=== PATIENT | male | born 1950 | race Caucasian/White ===

== ENCOUNTER → 2022-08-04 10:11 | Outpatient (CLI) | payer MEDICARE, OTHER, SELFPAY ==
--- NOTE | 2022-08-04 10:19 | DI.RAD.S_ITS ---
PROCEDURE: XR THORACIC SPINE 3V INDICATIONS: thoracic back pain TECHNIQUE: Three views of the thoracic spine were acquired. COMPARISON: [facility], CT, CT ANGIO CHEST PE, 03/19/2021, 17:27. FINDINGS: Bones: No acute fractures or dislocations. Moderate chronic compression fracture at T12 does not appear significantly changed when compared to the CT from 03/19/2021. No suspicious bony lesions. 12 pairs of ribs are noted, and appear intact where visualized. Mild degenerative endplate changes. Soft tissues: No paravertebral stripe thickening. Surgical clips are seen projecting over the upper abdomen. IMPRESSION: Chronic T12 compression fracture. No acute osseous abnormality. If the symptoms persist, consider cross sectional imaging such as MRI or CT for further assessment. Approved by: Kareem Westfall M.D. on 08/04/2022 at 16:12
--- NOTE | 2022-08-04 10:19 | DI.RAD.S_ITS ---
PROCEDURE: XR LUMBAR SPINE MIN 4V INDICATIONS: low back pain TECHNIQUE: 5 views of the lumbar spine were acquired, including bilateral oblique views. COMPARISON: [facility], MR, MR LUMBAR SPINE WITHOUT CONTRAST, 10/31/2020, 16:16. FINDINGS: Bones: 5 nonrib-bearing vertebrae are present. Generalized osteopenia. There is normal bony alignment. No vertebral body compression fractures. No suspicious bony lesions. Mild degenerative endplate changes. Mild to moderate multilevel facet hypertrophy. Soft tissues: Overlying bowel gas pattern is normal. No suspicious soft tissue calcifications. Surgical clips are seen projecting over the upper abdomen. Surgical suture material is also seen projecting over the pelvis. Oblique images: No pars defects. IMPRESSION: [id number] spondylosis. No acute osseous abnormality. If the symptoms persist, consider cross sectional imaging such as MRI or CT for further assessment. Approved by: Kareem Westfall M.D. on 08/04/2022 at 16:15
== END ==
PROVIDERS: Referring Provider Anesthesiology; Visit Provider Anesthesiology
DX: M47.816 Spondylosis without myelopathy or radiculopathy, lumbar region (principal); M48.54XS Collapsed vertebra, not elsewhere classified, thoracic region, sequela of fracture; M54.6 Pain in thoracic spine; M54.50 Low back pain, unspecified
CPT/HCPCS: 72072; 72110; 99214

== ENCOUNTER 2022-08-28 14:59 | Outpatient (CLI) | payer MEDICARE, OTHER, SELFPAY ==
[2022-08-28] VITALS (7 sets, daily range): BP systolic 96–110; BP diastolic 52–70; PULSE 65–78; RESP 16–20; TEMP 36.4; O2SAT 97–100
--- NOTE | 2022-08-28 15:02 | DI.RAD.S_ITS ---
PROCEDURE: PAIN C/T FACET INJ/BLK 1ST OSIRIS COMPARISON: None. INDICATIONS: SPINAL STENOSIS FINDINGS: Low resolution intraoperative 4 fluoroscopic spot films were obtained at thoracolumbar junction and show needle positioning at 2:11 a.m., T12 and L1 IMPRESSION: Fluoroscopic guidance Approved by: Trell Calderon M.D. on 08/29/2022 at 14:46
[2022-08-28] MEDS: IOPAMIDOL 15 ML VIAL 3 ML INJ (16:00)
[2022-08-28] MEDS: BUPIVACAINE 0.5% (PF) 10 ML VIAL 5 ML SUBCUT (16:00)
--- NOTE | 2022-08-28 17:28 | P.PCN_ITS ---
Date/Time/Diagnoses Date of procedure: 08/28/22 Time of procedure: 15:30 Procedure Notes Physician: Dung Patel Total Fluoroscopy time (seconds): 38 Total sedation minutes: 0 Procedure in detail & Post-procedure care: Bilateral T11, T12, L1 Medial Branch Blocks Indications: Chase is referred by Dr. Santamaria for treatment of thoracolumbar spondylosis with thoracic back pain. Preoperative diagnosis: Bilateral thoracolumbar spondylosis Postoperative diagnosis: Same Pre-procedure History: Patient demonstrates today moderate to severe non- radicular back pain without neurologic deficit aggravated by hyperextension yes Back pain greater than leg pain? yes Patient today has tenderness over the suspected joint(s) yes History of post-traumatic injury? yes Hypertrophic arthropathy yes Back pain associated with suspected motion segment instability, hypermobility or pseudoarthrosis yes Pre-testing pain score (VAS): 8/10 Focused Examination: Ax3 Mood and affect are normal Vital Signs: VSS ASA: 2 Consent: Following review of allergies and potential side effects/complications, including, but not necessarily limited to, infection, allergic reaction, local tissue breakdown, stroke, temporary or permanent nerve injury, paralysis, and possible , the patient indicated that they understood and agreed to proceed.? An informed consent document was signed by the patient, witnessed by a nurse and placed in the patient's chart.? Additionally, other treatment options including medications and physical therapy were reviewed with the patient. All questions were answered. Site was then marked. Anesthesia: Local Position: Prone Monitoring: NIBP, Pulse oximetry, 3 lead EKG Needle used: 25G 3.5 inch spinal needle Contrast: Isovue 300M Injectate: 0.5% bupivacaine 0.5 mL per site Procedure: The patient was brought into the procedure room and positioned into the prone position. Skin was prepped with a Chloraprep solution, allowed to air dry, and then draped in sterile fashion.? The right T11, 12, L1 facet joints were visually identified with fluoroscopy. Lidocaine 1% was used to anesthetize the skin over each target destination with a 25ga needle. A 22 ga, 3.5 inch spinal needle was advanced to the location of the medial branch at the junction of the superior articular process and the transverse process using intermittent fluoroscopy in the AP view. Isovue 300M contrast 0.2ml was injected at each level outlining the medial borders for each level in the AP and lateral views. There was no evidence of vascular or intrathecal uptake. The above injectate was slowly injected at each target destination. The above procedure was then repeated for the left side. The left T11, 12, L1 facet joints were visually identified with fluoroscopy. Lidocaine 1% was used to anesthetize the skin over each target destination with a 25ga needle. A 22 ga, 3.5 inch spinal needle was advanced to the location of the medial branch at the junction of the superior articular process and the transverse process using intermittent fluoroscopy in the AP view. Isovue 300M contrast 0.2ml was injected at each level outlining the medial borders for each level in the AP and lateral views. There was no evidence of vascular or intrathecal uptake. The above injectate was slowly injected at each target destination. At the end of the procedure the needles were withdrawn and Band-Aids were applied for a dressing. Post Procedure: Patient was taken to the recovery and monitored. The patient was provided a Pain Log to continue to record the patient's response to the target- specific procedure prior to the patient's follow-up visit with the referring physician. Patient was stable upon discharge. Detailed post procedure instructions were provided. Patient was asked to call in the event of worsening pain, fever, weakness, numbness or bladder or bowel incontinence. Postoperatively, today patient demonstrates the following changes with hyperextension and with tenderness over the suspected joint(s). Provacative testing using the Parson's facet loading test Right side Left side Directly before the block ?VAS (0-10) = 8/10 VAS (0-10) = 8/10 5 minutes after the block VAS (0-10) = 4/10 VAS (0-10) = 4/10 Percentage relief obtained with this diagnostic block 50 % 50 % Any improved physical functioning directly after the blocks? Improved mobility Based on the medial branches blocked today, if the patient meets insurance criteria for radiofrequency, the treatment should result in the denervation of the bilateral T12-L1 and L1-L2 facet joint nerves. We would expect to denervate a total of 4 facets during the radiofrequency ablation.
== END 2022-08-28 16:21 | disposition home or self-care (01) ==
PROVIDERS: PCP Family Medicine; Referring Provider Anesthesiology; Visit Provider Anesthesiology
DX: M47.814 Spondylosis without myelopathy or radiculopathy, thoracic region (principal); M47.815 Spondylosis without myelopathy or radiculopathy, thoracolumbar region
CPT/HCPCS: 64490; 64491

== ENCOUNTER 2022-09-18 14:54 | Outpatient (CLI) | payer MEDICARE, OTHER, SELFPAY ==
--- NOTE | 2022-09-18 14:56 | DI.RAD.S_ITS ---
PROCEDURE: PAIN L/S FACET INJ/BLK 1ST OSIRIS COMPARISON: None. INDICATIONS: Bilateral T11, 12, L1 MBB - SA FINDINGS: A single fluoroscopic C-arm image is provided. 6 separate needles have been placed, leave for bilateral medial branch block procedure. IMPRESSION: Fluoroscopic imaging provided for a bilateral medial branch block Dictated by: Laci Irwin M.D. on 09/18/2022 at 17:38 Approved by: Laci Irwin M.D. on 09/18/2022 at 17:40
[2022-09-18 15:10] VITALS: BP 148/76; PULSE 78; RESP 22; TEMP 36.9; O2SAT 96
[2022-09-18 15:35] VITALS: BP 177/75; PULSE 70; RESP 16; O2SAT 100
[2022-09-18 15:40] VITALS: BP 159/72; PULSE 74; RESP 18; O2SAT 100
[2022-09-18 15:45] VITALS: BP 143/65; PULSE 70; RESP 18; O2SAT 100
[2022-09-18 15:51] VITALS: BP 149/56; PULSE 70; RESP 16; O2SAT 100
[2022-09-18 15:56] VITALS: BP 153/67; PULSE 70; RESP 20; O2SAT 97
--- NOTE | 2022-09-18 17:24 | P.PCN_ITS ---
Date/Time/Diagnoses Date of procedure: 09/18/22 Time of procedure: 15:30 Procedure Notes Physician: Dung Patel Total Fluoroscopy time (seconds): 18 Total sedation minutes: 0 Procedure in detail & Post-procedure care: Bilateral T11, T12 and L1 Lumbar Medial Branch Blocks Indications: Chase is presenting for treatment of lumbar spondylosis with low back pain. Preoperative diagnosis: Bilateral thoracolumbar spondylosis Postoperative diagnosis: Same Pre-procedure History: Patient demonstrates today moderate to severe non- radicular back pain without neurologic deficit aggravated by hyperextension yes Back pain greater than leg pain? yes Patient today has tenderness over the suspected joint(s) yes History of post-traumatic injury? yes Hypertrophic arthropathy yes Back pain associated with suspected motion segment instability, hypermobility or pseudoarthrosis no Pre-testing pain score (VAS): 8/10 Focused Examination: Ax3 Mood and affect are normal Vital Signs: VSS ASA: 2 Consent: Following review of allergies and potential side effects/complications, including, but not necessarily limited to, infection, allergic reaction, local tissue breakdown, stroke, temporary or permanent nerve injury, paralysis, and possible , the patient indicated that they understood and agreed to proceed.? An informed consent document was signed by the patient, witnessed by a nurse and placed in the patient's chart.? Additionally, other treatment options including medications and physical therapy were reviewed with the patient. All questions were answered. Site was then marked. Anesthesia: Local Position: Prone Monitoring: NIBP, Pulse oximetry, 3 lead EKG Needle used: 22G 3.5 inch spinal needle Contrast: Isovue 300M Injectate: 2% Lidocaine 1 mL per site Procedure: The patient was brought into the procedure room and positioned into the prone position. Skin was prepped with a Chloraprep solution, allowed to air dry, and then draped in sterile fashion.? The right T12-L1 and L1-2 facet joints were visually identified with fluoroscopy. Lidocaine 1% was used to anesthetize the skin over each target destination with a 25ga needle. A 22 ga, 3.5 inch spinal needle was advanced to the location of the medial branch at the junction of the superior articular process and the transverse process at T11, 12 and L1 using intermittent fluoroscopy in the AP view. Isovue 300M contrast 0.2ml was injected at each level outlining the medial borders for each level in the AP and lateral views. There was no evidence of vascular or intrathecal uptake. The above injectate was slowly injected at each target destination. The left T12-L1 and L1-2 facet joints were visually identified with fluoroscopy. Lidocaine 1% was used to anesthetize the skin over each target destination with a 25ga needle. A 22 ga, 3.5 inch spinal needle was advanced to the location of the medial branch at the junction of the superior articular process and the transverse process at T11, 12 and L1 using intermittent fluoroscopy in the AP view. Isovue 300M contrast 0.2ml was injected at each level outlining the medial borders for each level in the AP and lateral views. There was no evidence of vascular or intrathecal uptake. The above injectate was slowly injected at each target destination. At the end of the procedure the needles were withdrawn and Band-Aids were applied for a dressing. At the end of the procedure the needles were withdrawn and Band-Aids were applied for a dressing. Post Procedure: Patient was taken to the recovery and monitored. The patient was provided a Pain Log to continue to record the patient's response to the target- specific procedure prior to the patient's follow-up visit with the referring physician. Patient was stable upon discharge. Detailed post procedure ins tructions were provided. Patient was asked to call in the event of worsening pain, fever, weakness, numbness or bladder or bowel incontinence. Postoperatively, today patient demonstrates the following changes with hyperextension and with tenderness over the suspected joint(s). Provacative testing using the Parson's facet loading test Right side Left side Directly before the block ?VAS (0-10) = 8/10 VAS (0-10) = 8/10 5 minutes after the block VAS (0-10) = 1/10 VAS (0-10) = 1/10 Percentage relief obtained with this diagnostic block 87 % 87 % Any improved physical functioning directly after the blocks? Range of motion Based on the medial branches blocked today, if the patient meets insurance criteria for radiofrequency, the treatment should result in the denervation of the bilateral T12-L1 and L1-2 facet joint nerves. We would expect to denervate a total of 4 facets during the radiofrequency ablation.
== END 2022-09-18 16:04 | disposition home or self-care (01) ==
PROVIDERS: PCP Family Medicine; Referring Provider Anesthesiology; Visit Provider Anesthesiology
DX: M47.815 Spondylosis without myelopathy or radiculopathy, thoracolumbar region (principal)
CPT/HCPCS: 64490; 64491; 64492; 64493

== ENCOUNTER 2022-10-14 10:08 | Observation (INO) | payer MEDICARE, OTHER, SELFPAY ==
[2022-10-14] VITALS (90 sets, daily range): BP systolic 80–169; BP diastolic 52–72; PULSE 68–89; RESP 11–31; TEMP 36.8–37.4; O2SAT 92–100; BMI 23.7
--- NOTE | 2022-10-14 10:13 | DI.RAD.S_ITS ---
PROCEDURE: XR CHEST 1V INDICATIONS: weakness, hypotension TECHNIQUE: One view of the chest was acquired. COMPARISON: None. FINDINGS: Surgical changes and devices: None. Lungs and pleura: Lungs are clear. No pleural effusions or pneumothorax. Mediastinum: Mediastinal contours appear normal. Heart size is normal. Bones and chest wall: No suspicious bony lesions. Prior right distal clavicle resection. Overlying soft tissues appear unremarkable. IMPRESSION: No acute cardiopulmonary disease. Dictated by: Suzette Cevallos M.D. on 10/14/2022 at 11:36 Approved by: Suzette Cevallos M.D. on 10/14/2022 at 11:37
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
[2022-10-14 12:38] LABS: Add Manual Diff / Slide Review NO; Basophils Absolute Auto 0 /uL (0-100); Basophils Percent Auto 0.3 % (0-2); Eosinophils Absolute Auto 100 /uL (0-450); Eosinophils Percent Auto 0.4 % (2-4); Hematocrit 47.3 % (41-53); Hemoglobin 15.6 g/dL (13.5-17.5); Lymphocytes Absolute Auto 2100 /uL (1100-4500); Lymphocytes Percent Auto 13.1 % (25-40); Mean Corpuscular HGB Conc 33.1 % (30-36); Mean Corpuscular Hemoglobin 32.4 PG (26-34); Mean Corpuscular Volume 97.9 fL (80-100); Monocytes Absolute Auto 1500 /uL (0-900); Monocytes Percent Auto 9.3 % (3-14); Neutrophils Absolute Auto 12400 /uL (1500-7000); Neutrophils Percent Auto 76.9 % (50-75); Platelet Count 345 X10^3/uL (150-400); Red Blood Cell Count 4.83 X10^6/uL (4.5-5.9); Red Cell Distribution Width 13.8 % (11.6-14.8); White Blood Cell Count 16.1 X10^3/uL (4.5-11.0)
[2022-10-14] MEDS: ONDANSETRON 4 MG/2 ML INJ IV ×3 (12:44→21:20)
[2022-10-14] MEDS: SODIUM CHLORIDE 0.9% 1,000 ML 1000 ML IV (12:45)
[2022-10-14 12:56] LABS: Lactate (Lactic Acid) 1.7 mmol/L (0.7-2.1)
[2022-10-14 13:05] LABS: NT-proBNP (BNP-Adult 18+) 133 pg/mL (<125)
[2022-10-14 13:14] LABS: Procalcitonin 0.09 ng/mL (<0.5)
[2022-10-14 13:37] LABS: BUN Creatinine Ratio 24.6 (6-22); Blood Urea Nitrogen 33 mg/dL (9-20); Calcium 8.3 mg/dL (8.4-10.2); Carbon Dioxide 24 mmol/L (22-32); Chloride 105 mmol/L (98-107); Creatine Kinase 190 U/L (55-170); Estimated Glomerular Filt Rate 56 mL/min (>60); Glucose 99 mg/dL (80-110); Sodium 138 mmol/L (137-145)
[2022-10-14 13:38] LABS: Alanine Aminotransferase 20 IU/L (<50); Albumin 4.3 g/dL (3.5-5.0); Albumin Globulin Ratio 1.4 (1.0-2.8); Alkaline Phosphatase 88 U/L (38-126); Aspartate Aminotransferase 31 IU/L (17-59); Bilirubin Total 0.9 mg/dL (0.2-1.3); Globulin 3.1 g/dL (1.7-4.1); HEMOLYSIS 72 (0-50); Total Protein 7.4 g/dL (6.3-8.2)
[2022-10-14 13:39] LABS: Troponin I < 0.012 ng/mL (0.01-0.034)
[2022-10-14 13:52] LABS: CKMB % Relative Index 0.9 % (1.5-5.0); Creatine Kinase MB 1.69 ng/mL (<2.37)
[2022-10-14 14:03] LABS: Appearance Urine UA CLEAR; Bilirubin Urine UA NEGATIVE (NEGATIVE); Color Urine UA YELLOW; Glucose Urine UA NEGATIVE (Negative); Ketones Urine UA NEGATIVE (NEGATIVE); Leukocyte Esterase Urine UA NEGATIVE (NEGATIVE); Nitrite Urine UA NEGATIVE (Negative); Occult Blood Urine UA NEGATIVE (Negative); Protein Urine UA 1+ (Negative)
[2022-10-14 14:15] LABS: Culture Indicated Urine Cult Not Indicated; Hyaline Casts Urine 1-5/LPF; RBC Urine 1-5/HPF (0-5/HPF); Squamous Epithelial Cell Urine 0-1 /HPF (0-5/HPF); WBC Urine 1-5/HPF (0-5/HPF)
[2022-10-14 14:20] LABS: Bacteria Urine Occasional (0-1)
--- NOTE | 2022-10-14 14:22 | DI.CT.S_ITS ---
PROCEDURE: CT ABDOMEN PELVIS W CON INDICATIONS: abdominal pain TECHNIQUE: After the administration of intravenous contrast, axial sections acquired from the lung bases to the pubic symphysis. Coronal and sagittal reformats were performed. For radiation dose reduction, the following was used: automated exposure control, adjustment of mA and/or kV according to patient size. COMPARISON: None. FINDINGS: Image quality: Excellent. Lung bases: Unremarkable. Heart: Normal size. Severe coronary artery calcifications. ABDOMEN: Liver: Unremarkable. Gallbladder: Unremarkable. Biliary ducts: Unremarkable. Pancreas: Unremarkable. Spleen: Surgically absent. Minimal residual splenic tissue.. Adrenal Glands: Unremarkable. Kidneys and Ureters: Remote left nephrectomy. Right kidney is unremarkable.. Stomach and Bowel: Small-bowel obstruction. Small bowel loops measure up to 5.3 cm. There is a transition point noted in the right abdomen. Colon is decompressed. Mild sigmoid diverticulosis. Peritoneum: No abnormal intraperitoneal fluid. No free air. Ventral Wall: No hernias. Abdominal Nodes: No retroperitoneal or mesenteric adenopathy by size criteria. Vessels: Aorta and inferior vena cava are normal in size. Diffuse atherosclerotic change. Severe or high-grade left common iliac artery stenosis. PELVIS: Pelvic Organs: Unremarkable. Bladder: Unremarkable. Pelvic Nodes: No enlarged lymph nodes. Miscellaneous: No hernias are seen. Bones: Mild chronic T12 compression. No evidence of aggressive bony lesion. No acute compression. IMPRESSION: 1. High-grade small-bowel obstruction with marked dilatation of small bowel loops. 2. Severe coronary artery calcifications. 3. Extensive peripheral vascular calcifications with severe or high-grade calcified left common iliac artery stenosis. 4. Remote splenectomy, and remote left nephrectomy. Dictated by: Laci Irwin M.D. on 10/14/2022 at 15:47 Approved by: Laci Irwin M.D. on 10/14/2022 at 15:54
[2022-10-14] MEDS: HYDROMORPHONE 0.5 MG INJ IV ×3 (14:55→21:26)
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
[2022-10-14] MEDS: SODIUM CHLORIDE 0.9% 1,000 ML 150 ML IV (16:44)
[2022-10-14 16:52] LABS: Magnesium 2.3 mg/dL (1.6-2.3)
--- NOTE | 2022-10-14 17:31 | DI.RAD.S_ITS ---
PROCEDURE: XR GASTROGRAFIN CHALLENGE COMPARISON: [facility], CT, CT ABDOMEN PELVIS W CON, 10/14/2022, 15:05. [facility], CR, XR CHEST 1V, 10/14/2022, 11:17. INDICATIONS: SBO FINDINGS: Gastrografin was given by mouth. Oral contrast has reached to the rectum at 4 hours. There are multiple surgical clips in upper abdomen. IMPRESSION: Oral contrast has reached colon and rectum. Dictated by: Ree Chavez M.D. on 10/14/2022 at 21:59 Approved by: Ree Chavez M.D. on 10/14/2022 at 22:01
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
[2022-10-14 18:23] LABS: COVID19 -Nasal RAPID Negative (Negative)
[2022-10-14] MEDS: SODIUM CHLORIDE 0.9% 1,000 ML 125 ML IV (18:36)
[2022-10-14] MEDS: ATORVASTATIN 20 MG TABLET PO (21:20)
[2022-10-14] MEDS: HEPARIN 5,000 UNIT/ML VIAL 5000 UNIT SUBCUT (21:21)
[2022-10-14] MEDS: TRAZODONE 50 MG TABLET PO (21:21)
[2022-10-15] MEDS: ONDANSETRON 4 MG/2 ML INJ IV ×4 (00:45→12:25)
[2022-10-15 02:24] VITALS: BP 176/79; PULSE 82; RESP 19; TEMP 37; O2SAT 95
[2022-10-15] MEDS: HYDROMORPHONE 0.5 MG INJ IV ×3 (03:14→14:46)
[2022-10-15 06:28] LABS: Add Manual Diff / Slide Review NO; Basophils Absolute Auto 100 /uL (0-100); Basophils Percent Auto 0.4 % (0-2); Eosinophils Absolute Auto 200 /uL (0-450); Eosinophils Percent Auto 1.3 % (2-4); Hematocrit 43.8 % (41-53); Hemoglobin 14.4 g/dL (13.5-17.5); Lymphocytes Absolute Auto 2200 /uL (1100-4500); Lymphocytes Percent Auto 16.3 % (25-40); Mean Corpuscular HGB Conc 32.9 % (30-36); Mean Corpuscular Hemoglobin 31.9 PG (26-34); Mean Corpuscular Volume 96.9 fL (80-100); Monocytes Absolute Auto 1300 /uL (0-900); Monocytes Percent Auto 9.9 % (3-14); Neutrophils Absolute Auto 9600 /uL (1500-7000); Neutrophils Percent Auto 72.1 % (50-75); Platelet Count 308 X10^3/uL (150-400); Red Blood Cell Count 4.52 X10^6/uL (4.5-5.9); Red Cell Distribution Width 13.7 % (11.6-14.8); White Blood Cell Count 13.4 X10^3/uL (4.5-11.0)
[2022-10-15 06:43] LABS: BUN Creatinine Ratio 29.8 (6-22); Blood Urea Nitrogen 28 mg/dL (9-20); Calcium 7.5 mg/dL (8.4-10.2); Carbon Dioxide 20 mmol/L (22-32); Chloride 111 mmol/L (98-107); Estimated Glomerular Filt Rate > 60 mL/min (>60); Glucose 67 mg/dL (80-110); HEMOLYSIS < 15 (0-50); Potassium 4.3 mmol/L (3.4-5.1); Sodium 139 mmol/L (137-145)
--- NOTE | 2022-10-15 08:27 | P.CALLCOV_ITS ---
Call Coverage Note Note Date of Patient Contact: 10/15/22 Time of Patient Contact: 08:27 Narrative of Care Provided: 72-year-old man with a small-bowel obstruction. Gastrografin challenge demonstrates passage of contrast into the colon and rectum. Having bowel mo vements resolution of abdominal pain. Obstruction resolved. Diet as tolerated signing off.
[2022-10-15] MEDS: DULOXETINE 30 MG CAPSULE PO (08:37)
[2022-10-15] MEDS: HEPARIN 5,000 UNIT/ML VIAL 5000 UNIT SUBCUT (08:37)
[2022-10-15 10:00] VITALS: BP 112/81; PULSE 74; RESP 16; TEMP 36.8; O2SAT 94
--- NOTE | 2022-10-15 11:31 | CM.DANOTE ---
DCP: Case received, EMR reviewed and met with patient. Introduced self and role. Was able to obtain information regarding patient's baseline activity status prior to hospitalization. DCP assessment completed with information currently available. Patient is a 72 year old male who admitted yesterday afternoon to the care of the hospitalist team. PCP: Dr. Santamaria. Payer: confirmed: Medicare/[employer] Patient came to the hospital via private vehicle secondary to having generalized abdominal discomfort, and is noted that he had an episode of nausea, and vomiting. Patient had also noted loose stool. Patient was diagnosed with partial small bowel obstruction. No NG tube was needed at this time. Patient has history of COPD, chronic peripheral vascular disease. Met with patient in his room. He was feeling better, was going to start a clear liquid diet. Confirmed that he resides in [place] with spouse, Karen. He is retired, and is independent at his baseline. Confirmed that Dr. Santamaria is his primary care provider. P: DCP to continue to follow. Patient should be able to go home when deemed medically stable, could possibly discharge today. Domonique Carmen RN/Can Carrier Discharge Planning/Care Management Advanced directive, confirm from FAMILY Start: 10/14/22 19:45 Freq: Q24H Status: Active Protocol: Document 10/14/22 19:45 AGW (Rec: 10/15/22 03:19 AGW [id number]) Advance Directive, confirm on record Time 20:00 Person contacted patient Copy received No CM Discharge Assessment Start: 10/15/22 11:29 Freq: Status: Active Protocol: Document 10/15/22 11:29 (Rec: 10/15/22 11:31 [id number]) Discharge Planning Assessment Assigned Golf Cart Attendant Domonique Carmen RN/Can Carrier Advance Directives? Yes Advance Directives on File No History Provided By Patient,Medical Record Prior Living Arrangements House Household Members spouse Type of transporation used prior to Drives own vehicle admit Independent with ADL's Yes Is patient alert and oriented? Yes Barriers to Discharge No Discharge Plan Home Transportation Arrangement Spouse Referrals Initiated None needed Whiteboard Updated in Patient Room with Yes name and ext. # of Golf Cart Attendant Review Status In Process Next Review Type Continued Stay Review
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
== END 2022-10-15 16:00 | disposition home or self-care (01) ==
LOC: ED 16:15 → AC 17:22
PROVIDERS: Admitting Provider Student in an Organized Health Care Education/Training Program; Emergency Provider Emergency Medicine; PCP Family Medicine; Referring Provider Emergency Medicine; Visit Provider Student in an Organized Health Care Education/Training Program
DX: K56.609 Unspecified intestinal obstruction, unspecified as to partial versus complete obstruction (principal); I10 Essential (primary) hypertension; E78.5 Hyperlipidemia, unspecified; J44.9 Chronic obstructive pulmonary disease, unspecified; G47.00 Insomnia, unspecified; I70.8 Atherosclerosis of other arteries; D72.829 Elevated white blood cell count, unspecified; Z20.822 Contact with and (suspected) exposure to COVID-19
CPT/HCPCS: 36415; 71045; 74018; 74177; 80048; 80053; 81001; 82550; 82553; 83605; 83735; 83880; 84145; 84484; 85025; 87040; 87635; 93005; 93010; 96361; 96372; 96374; 96375; 96376; 99284; C9803; G0378; J1170; J1644; J2405; Q9967

== ENCOUNTER → 2022-10-27 10:47 | Outpatient (CLI) | payer MEDICARE, OTHER, SELFPAY ==
[2022-10-14 17:59] VITALS: BMI 23.7
[2022-10-27 12:00] LABS: Add Manual Diff / Slide Review NO; Basophils Absolute Auto 100 /uL (0-100); Basophils Percent Auto 1.2 % (0-2); Eosinophils Absolute Auto 400 /uL (0-450); Eosinophils Percent Auto 3.9 % (2-4); Hematocrit 44.7 % (41-53); Hemoglobin 15.2 g/dL (13.5-17.5); Lymphocytes Absolute Auto 2400 /uL (1100-4500); Mean Corpuscular Hemoglobin 32.8 PG (26-34); Mean Corpuscular Volume 96.5 fL (80-100); Monocytes Absolute Auto 900 /uL (0-900); Monocytes Percent Auto 9.3 % (3-14); Neutrophils Absolute Auto 6300 /uL (1500-7000); Neutrophils Percent Auto 61.6 % (50-75); Platelet Count 403 X10^3/uL (150-400); Red Blood Cell Count 4.63 X10^6/uL (4.5-5.9); Red Cell Distribution Width 13.6 % (11.6-14.8); White Blood Cell Count 10.2 X10^3/uL (4.5-11.0)
== END ==
PROVIDERS: PCP Family Medicine; Referring Provider Anesthesiology; Visit Provider Anesthesiology
DX: K56.600 Partial intestinal obstruction, unspecified as to cause (principal)
CPT/HCPCS: 36415; 85025

== ENCOUNTER 2022-11-05 10:29 | Outpatient (CLI) | payer MEDICARE, OTHER, SELFPAY ==
[2022-10-14 17:59] VITALS: BMI 23.7
[2022-11-05] VITALS (20 sets, daily range): BP systolic 139–179; BP diastolic 54–88; PULSE 66–83; RESP 12–18; TEMP 36.8; O2SAT 96–100
--- NOTE | 2022-11-05 10:30 | DI.RAD.S_ITS ---
PROCEDURE: PAIN C/T MEDIAL N RFA BILAT INDICATIONS: SPONDYLOSIS COMPARISON: [facility], XA, PAIN C/T FACET INJ/BLK 1ST OSIRIS, 09/18/2022, 15:35. FINDINGS: Fluoroscopic spot filming was performed to verify placement of spinal needles on both sides at the T11, T12, and L1 levels, as labeled on the films. IMPRESSION: Images during rhizotomy within normal limits. Dictated by: Rk Rosado M.D. on 11/05/2022 at 13:45 Approved by: Rk Rosado M.D. on 11/05/2022 at 13:46
[2022-11-05] MEDS: BUPIVACAINE 0.5% (PF) 10 ML VIAL INJ (11:19)
[2022-11-05] MEDS: LIDOCAINE 2% INJ MDV 20ML 20 ML INJ (11:19)
[2022-11-05] MEDS: DEXAMETHASONE 10 MG/ML VIAL 20 MG INJ (11:19)
[2022-11-05] MEDS: MIDAZOLAM 2 MG/2 ML VIAL 1 MG IV ×2 (11:22→12:04)
--- NOTE | 2022-11-05 13:43 | P.PCN_ITS ---
Date/Time/Diagnoses Date of procedure: 11/05/22 Time of procedure: 11:00 Procedure Notes Physician: Dung Patel Total Fluoroscopy time (seconds): 54 Total sedation minutes: 69 Procedure in detail & Post-procedure care: Bilateral T11, 12 and L1 Medial Branch Radio Frequency Ablation Indications: Chase presents for treatment of lumbar spondylosis with low back pain. Preoperative diagnosis: Bilateral thoracolumbar spondylosis Postoperative diagnosis: Same Pre-procedure History: Patient demonstrates today moderate to severe non-radicular low back pain without neurologic deficit aggravated by hyperextension yes Back pain greater than leg pain? yes Patient today has tenderness over the suspected joint(s) yes History of post-traumatic injury? no Hypertrophic arthropathy yes Back pain associated with suspected motion segment instability, hypermobility or pseudoarthrosis no Focused Examination: Ax3 Mood and affect are normal Vital Signs: VSS ASA: 3 Consent: Following review of allergies and potential side effects/complications, including, but not necessarily limited to, infection, allergic reaction, local tissue breakdown, stroke, temporary or permanent nerve injury, paralysis, and possible , the patient indicated that they understood and agreed to proceed.? An informed consent document was signed by the patient, witnessed by a nurse and placed in the patient's chart.? Additionally, other treatment options including medications and physical therapy were reviewed with the patient. All questions were answered. Site was then marked. Position: Prone Monitoring: NIBP, Pulse oximetry, 3 lead EKG Needle used: 18 guage, 100 mm, 10 mm active tip Anesthesia: Local with IV sedation. After review of previous anesthetic history and IV conscious sedation, the patient was deemed safe to proceed with today's procedure with IV conscious sedation. IV sedation was accomplished with midazolam 2 mg administered by the RN after order by Dr. Patel. Sedation was titrated to patient comfort during the course of the procedure. Patient remained responsive to all verbal commands. Procedure: The patient was brought into the procedure room and positioned into the prone position. Skin was prepped with a Chloraprep solution, allowed to air dry, and then draped in sterile fashion.? The right T12-L1 and L1-2 facet joints were visually identified with fluoroscopy. Lidocaine 1% was used to anesthetize the skin over each target destination with a 25ga needle. An 18 ga, 100 mm RFA needle with a 10 mm active tip was advanced to the location of the medial branch at the junction of the superior articular process and the transverse process at right T11, T12 and L1 using intermittent fluoroscopy in the oblique view with caudal tilt. AP and lateral radiographs were taken to confirm proper needle placement. No paresthesias were noted. The stylet was removed and the radiofrequency probe was inserted through the cannula. Each level was individually tested.? Motor stimulation up to 2V elicited multifidus twitching in the spine. There was no motor stimulation. After negative aspiration, 1ml of 2% lidocaine was injected at each of the levels and radiofrequency denervation carried out using 80 degrees Celsius for 90 seconds. After ablation, a mixture of 20 mg dexamethasone with 0.5% bupivacaine 5 mL was injected in equal amounts among the sites (1 mL per site). Next, the left T12-L1 and L1-2 facet joints were visually identified with fluoroscopy. Lidocaine 1% was used to anesthetize the skin over each target destination with a 25ga needle. An 18 ga, 100 mm RFA needle with a 10 mm active tip was advanced to the location of the medial branch at the junction of the sup erior articular process and the transverse process at left T11, 12 and L1 using intermittent fluoroscopy in the oblique view with caudal tilt. AP and lateral radiographs were taken to confirm proper needle placement. No paresthesias were noted. The stylet was removed and the radiofrequency probe was inserted through the cannula. Each level was individually tested.? Motor stimulation up to 2V elicited multifidus twitching in the spine. There was no motor stimulation. After negative aspiration, 1ml of 2% lidocaine was injected at each of the levels and radiofrequency denervation carried out using 80 degrees Celsius for 90 seconds. The needles were then rotated 90 degrees and a second ablation was performed at 80 degrees Celsius for 90 seconds. After ablation, a mixture of 20 mg dexamethasone with 0.5% bupivacaine 5 mL was injected in equal amounts among the sites (1 mL per site). At the end of the procedure the needles were withdrawn and Band-Aids were applied for a dressing. This procedure is expected to denervate the bilateral T12-L1 and L1-L2 facet joints. Post Procedure: Patient was taken to the recovery and monitored. The patient was provided a Pain Log to continue to record the patient's response to the target- specific procedure prior to the patient's follow-up visit with the referring physician. Patient was stable upon discharge. Detailed post procedure instructions were provided. Patient was asked to call in the event of worsening pain, fever, weakness, numbness or bladder or bowel incontinence. Complications: None
== END 2022-11-05 12:50 | disposition home or self-care (01) ==
LOC: RAD 10:30
PROVIDERS: PCP Family Medicine; Referring Provider Anesthesiology; Visit Provider Anesthesiology
DX: M47.815 Spondylosis without myelopathy or radiculopathy, thoracolumbar region (principal)
CPT/HCPCS: 64633; 64634; 99152; 99153; J1100; J2250

== ENCOUNTER 2023-02-18 10:05 | Outpatient (CLI) | payer MEDICARE, OTHER, SELFPAY ==
[2022-10-14 17:59] VITALS: BMI 23.7
[2023-02-18] VITALS (9 sets, daily range): BP systolic 119–143; BP diastolic 56–86; PULSE 68–89; RESP 15–22; TEMP 36.6; O2SAT 95–100
--- NOTE | 2023-02-18 10:07 | DI.RAD.S_ITS ---
PROCEDURE: PAIN C/T FACET INJ/BLK 1ST OSIRIS COMPARISON: [facility], , PAIN C/T FACET INJ/BLK 1ST OSIRIS, 09/18/2022, 15:35. INDICATIONS: SPONDYLOSIS FINDINGS: Fluoroscopic spot filming was performed to verify placement of spinal needles on both sides at the T8, T9, and T10 levels, as labeled on the films. Appropriate location of the needle tips was confirmed by injection of iodinated contrast. IMPRESSION: Intraprocedural examination demonstrating appropriate positions of the needles. Dictated by: Rk Rosado M.D. on 02/18/2023 at 13:07 Approved by: Rk Rosado M.D. on 02/18/2023 at 13:08
[2023-02-18] MEDS: MIDAZOLAM 2 MG/2 ML VIAL 1 MG IV (10:43)
[2023-02-18] MEDS: BUPIVACAINE 0.5% (PF) 10 ML VIAL 5 ML INJ (10:48)
[2023-02-18] MEDS: IOPAMIDOL 15 ML VIAL 3 ML INJ (10:48)
--- NOTE | 2023-02-18 12:17 | P.PCN_ITS ---
Date/Time/Diagnoses Date of procedure: 02/18/23 Time of procedure: 10:30 Procedure Notes Physician: Dung Patel Total Fluoroscopy time (seconds): 44 Total sedation minutes: 25 Procedure in detail & Post-procedure care: Bilateral T8, 9, 10 Medial Branch Blocks Indications: Chase is presenting for treatment of thoracic spondylosis with low back pain. Preoperative diagnosis: Thoracic spondylosis Postoperative diagnosis: Same Pre-procedure History: Patient demonstrates today moderate to severe non- radicular back pain without neurologic deficit aggravated by hyperextension yes Patient today has tenderness over the suspected joint(s) yes History of post-traumatic injury? yes Hypertrophic arthropathy yes Back pain associated with suspected motion segment instability, hypermobility or pseudoarthrosis no Pre-testing pain score (VAS): 7/10 Focused Examination: Ax3 Mood and affect are normal Vital Signs: VSS ASA: 2 Consent: Following review of allergies and potential side effects/complications, including, but not necessarily limited to, infection, allergic reaction, local tissue breakdown, stroke, temporary or permanent nerve injury, paralysis, and possible , the patient indicated that they understood and agreed to proceed.? An informed consent document was signed by the patient, witnessed by a nurse and placed in the patient's chart.? Additionally, other treatment options including medications and physical therapy were reviewed with the patient. All questions were answered. Site was then marked. Anesthesia: Local Position: Prone Monitoring: NIBP, Pulse oximetry, 3 lead EKG Needle used: 25 ga 1.5 inch needle Contrast: Isovue 300M Injectate: 0.5% Bupivacaine 1 mL per site Procedure: The patient was brought into the procedure room and positioned into the prone position. Skin was prepped with a Chloraprep solution, allowed to air dry, and then draped in sterile fashion.? The right T9-10 and T10-11 facet joints were visually identified with fluoroscopy. Lidocaine 1% was used to anesthetize the skin over each target destination with a 25ga needle. A 25 ga, 1.5 inch spinal needle was advanced to the location of the medial branch at T9, 10 and 11 using intermittent fluoroscopy in the AP view. Isovue 300M contrast 0.2ml was injected at each level outlining the medial borders for each level in the AP and lateral views. There was no evidence of vascular, intrathecal or pleural uptake. The above injectate was slowly injected at each target destination. The left T9-10 and T10-11 facet joints were visually identified with fluoroscopy. Lidocaine 1% was used to anesthetize the skin over each target destination with a 25ga needle. A 25 ga, 1.5 inch spinal needle was advanced to the location of the medial branch at T9, 10 and 11 using intermittent fluoroscopy in the AP view. Isovue 300M contrast 0.2ml was injected at each level outlining the medial borders for each level in the AP and lateral views. There was no evidence of vascular, intrathecal or pleural uptake. The above injectate was slowly injected at each target destination. At the end of the procedure the needles were withdrawn and Band-Aids were applied for a dressing. At the end of the procedure the needles were withdrawn and Band-Aids were applied for a dressing. Post Procedure: Patient was taken to the recovery and monitored. The patient was provided a Pain Log to continue to record the patient's response to the target- specific procedure prior to the patient's follow-up visit with the referring physician. Patient was stable upon discharge. Detailed post procedure instructions were provided. Patient was asked to call in the event of worsening pain, fever, weakness, numbness or bladder or bowel incontinence. Postoperatively, today patient demonstrates the following changes with hyperextension and with tenderness over the suspected joint(s). Provacative testing using the Parson's facet loading test Right side Left side Directly before the block ?VAS (0-10) = 7/10 VAS (0-10) = 7/10 5 minutes after the block VAS (0-10) = 4/10 VAS (0-10) = 4/10 Percentage relief obtained with this diagnostic block 42% 42% Any improved physical functioning directly after the blocks? Range of motion Based on the medial branches blocked today, if the patient meets insurance criteria for radiofrequency, the treatment should result in the denervation of the bilateral T9-10 and T10-11 facet joint nerves. We would expect to denervate a total of 4 facets during the radiofrequency ablation.
== END 2023-02-18 11:20 | disposition home or self-care (01) ==
PROVIDERS: PCP Family Medicine; Referring Provider Anesthesiology; Visit Provider Anesthesiology
DX: M47.814 Spondylosis without myelopathy or radiculopathy, thoracic region (principal)
CPT/HCPCS: 64490; 64491; 99152; 99153; J2250

== ENCOUNTER 2023-03-18 10:03 | Outpatient (CLI) | payer MEDICARE, OTHER, SELFPAY ==
[2022-10-14 17:59] VITALS: BMI 23.7
[2023-03-18] VITALS (11 sets, daily range): BP systolic 84–133; BP diastolic 50–69; PULSE 65–82; RESP 13–22; TEMP 36.7; O2SAT 94–100
--- NOTE | 2023-03-18 10:04 | DI.RAD.S_ITS ---
PROCEDURE: PAIN C/T FACET INJ/BLK 1ST OSIRIS INDICATIONS: SPINAL STENOSIS COMPARISON: [facility], XA, PAIN C/T FACET INJ/BLK 1ST OSIRIS, 02/18/2023, 10:47. [facility], XA, PAIN C/T MEDIAL N RFA BILAT, 11/05/2022, 11:16. FINDINGS: Fluoroscopic spot filming was performed to verify placement of spinal needles on both sides at the T8, T9, and T10 levels, as labeled on the films. Appropriate location of the needle tips was confirmed by injection of iodinated contrast. IMPRESSION: Intraprocedural examination demonstrating appropriate positions of the needles. Dictated by: Rk Rosado M.D. on 03/18/2023 at 17:20 Approved by: Rk Rosado M.D. on 03/18/2023 at 17:20
[2023-03-18] MEDS: MIDAZOLAM 2 MG/2 ML VIAL 1 MG IV (10:44)
[2023-03-18] MEDS: iopamidoL 15 ML VIAL 3 ML INJ (10:46)
[2023-03-18] MEDS: LIDOCAINE 2% INJ MDV 20ML 5 ML INJ (10:47)
--- NOTE | 2023-03-18 11:11 | PC.NURSE ---
Patient with BP 88/57 (67) - 99/51 (71) post injection. Asymptomatic, talking with staff while eating cookies and drinking coffee. Care ongoing.
--- NOTE | 2023-03-18 11:45 | P.PCN_ITS ---
Date/Time/Diagnoses Date of procedure: 03/18/23 Time of procedure: 10:30 Procedure Notes Physician: Dung Patel Total Fluoroscopy time (seconds): 27 Total sedation minutes: 12 Procedure in detail & Post-procedure care: Bilateral T8, 9, 10 Medial Branch Blocks Indications: Chase is presenting for treatment of thoracic spondylosis with thoracic back pain. Preoperative diagnosis: Thoracic spondylosis Postoperative diagnosis: Same Pre-procedure History: Patient demonstrates today moderate to severe non- radicular back pain without neurologic deficit aggravated by hyperextension yes Patient today has tenderness over the suspected joint(s) yes History of post-traumatic injury? no Hypertrophic arthropathy yes Back pain associated with suspected motion segment instability, hypermobility or pseudoarthrosis no Pre-testing pain score (VAS): 7/10 Focused Examination: Ax3 Mood and affect are normal Vital Signs: VSS ASA: 2 Consent: Following review of allergies and potential side effects/complications, including, but not necessarily limited to, infection, allergic reaction, local tissue breakdown, stroke, temporary or permanent nerve injury, paralysis, and possible , the patient indicated that they understood and agreed to proceed.? An informed consent document was signed by the patient, witnessed by a nurse and placed in the patient's chart.? Additionally, other treatment options including medications and physical therapy were reviewed with the patient. All questions were answered. Site was then marked. Anesthesia: After review of previous anesthetic history and IV conscious s edation, the patient was deemed safe to proceed with today's procedure with IV conscious sedation. IV sedation was accomplished with midazolam 1 mg administered by the RN after order by Dr. Patel. Sedation was titrated to patient comfort during the course of the procedure. Patient remained responsive to all verbal commands. Position: Prone Monitoring: NIBP, Pulse oximetry, 3 lead EKG Needle used: 25 ga, 1.5 in hypodermic needle Contrast: Isovue 300M Injectate: 2% lidocaine 0.5 mL per site Procedure: The patient was brought into the procedure room and positioned into the prone position. Skin was prepped with a Chloraprep solution, allowed to air dry, and then draped in sterile fashion.? The right T9-10 and T10-11 facet joints were visually identified with fluoroscopy. Lidocaine 1% was used to anesthetize the skin over each target destination with a 25ga needle. A 25 ga, 1.5 in hypodermic needle was advanced to the location of the medial branch at right T9, 10, 11 using intermittent fluoroscopy in the AP view. Isovue 300M contrast 0.2ml was injected at each level outlining the medial borders for each level in the AP and lateral views. There was no evidence of vascular or intrathecal uptake. The above injectate was slowly injected at each target destination. The left T9-10 and T10-11 facet joints were visually identified with fluoroscopy. Lidocaine 1% was used to anesthetize the skin over each target destination with a 25ga needle. A 25 ga, 1.5 in hypodermic needle was advanced to the location of the medial branch at left T9, 10, 11 using intermittent fluoroscopy in the AP view. Isovue 300M contrast 0.2ml was injected at each level outlining the medial borders for each level in the AP and lateral views. There was no evidence of vascular or intrathecal uptake. The above injectate was slowly injected at each target destination. At the end of the procedure the needles were withdrawn and Band-Aids were applied for a dressing. At the end of the procedure the needles were withdrawn and Band-Aids were applied for a dressing. Post Procedure: Patient was taken to the recovery and monitored. The patient was provided a Pain Log to continue to record the patient's response to the target-s pecific procedure prior to the patient's follow-up visit with the referring physician. Patient was stable upon discharge. Detailed post procedure instructions were provided. Patient was asked to call in the event of worsening pain, fever, weakness, numbness or bladder or bowel incontinence. Postoperatively, today patient demonstrates the following changes with hyperextension and with tenderness over the suspected joint(s). Provacative testing using the Parson's facet loading test Right side Left side Directly before the block ?VAS (0-10) = 7/10 VAS (0-10) = 7/10 5 minutes after the block VAS (0-10) = 3/10 VAS (0-10) = 3/10 Percentage relief obtained with this diagnostic block 57% 57% Any improved physical functioning directly after the blocks? Range of motion Based on the medial branches blocked today, if the patient meets insurance criteria for radiofrequency, the treatment should result in the denervation of the bilateral T9-10 and T10-11 facet joint nerves. We would expect to denervate a total of 4 facets during the radiofrequency ablation.
== END 2023-03-18 11:31 | disposition home or self-care (01) ==
LOC: RAD 10:04
PROVIDERS: PCP Family Medicine; Referring Provider Anesthesiology; Visit Provider Anesthesiology
DX: M47.814 Spondylosis without myelopathy or radiculopathy, thoracic region (principal)
CPT/HCPCS: 64490; 64491; 99152; J2250

== ENCOUNTER 2023-04-29 10:38 | Emergency (ER) | payer MEDICARE, OTHER, SELFPAY ==
[2022-10-14 17:59] VITALS: BMI 23.7
[2023-04-29] VITALS (7 sets, daily range): BP systolic 72–186; BP diastolic 49–85; PULSE 52–67; RESP 15–16; TEMP 35.9; O2SAT 96–97; BMI 22.4
--- NOTE | 2023-04-29 10:44 | DI.CT.S_ITS ---
PROCEDURE: CT ANGIO CHEST ABDOMEN PELVIS INDICATIONS: eval for dissection/aortic aneurysm TECHNIQUE: Precontrast 5 mm thick sections acquired from the lung apices to the iliac crests. After the administration of intravenous contrast, 2.5 mm thick sections again acquired from the lung apices to the iliac crests. Maximum intensity projection (MIP) oblique sagittal and coronal reformats were then acquired. For radiation dose reduction, the following was used: automated exposure control. COMPARISON: CT, CT ANGIO CHEST PE, 08/16/2018, 15:37. [facility], CT, CT ABDOMEN PELVIS WITH CONTRAST, 10/17/2022, 19:14. FINDINGS: Image quality: Excellent. AORTA: Ascending thoracic aorta measures 3.3 cm. No areas of dissection or hemodynamically significant stenosis. Atherosclerotic calcifications are present throughout the course in the chest, abdomen and pelvis. CHEST: Lungs and pleura: No acute airspace opacities. No pleural effusions or pneumothorax. Central and peripheral airways are patent and normal in caliber. 2-3 mm nodules present the lateral aspect of the right upper lobe on series 6, image 131. This was present on prior exam in 2019, punctate in size. 1.1 cm left posterior lower lobe nodule. It previously measured 0.60.7 cm on 10/17/2022. Mediastinum: Heart size is normal. No pericardial effusion. No mediastinal or hilar adenopathy by size criteria. Central pulmonary arteries are normal in size. Esophagus is normal in caliber. Mild hiatal hernia. Bones and chest wall: No axillary adenopathy by size criteria. Thyroid gland is unremarkable . No suspicious bony lesions. No vertebral body compression fractures. ABDOMEN: Vasculature: Celiac trunk and mesenteric arteries are patent. Renal arteries are also patent. Solid organs: Liver is normal in size and enhancement. Gallbladder is unremarkable . Biliary system is non dilated. Pancreas enhances normally. Small soft tissue density is present in the region of the spleen possibly related to remnant spleen or splenule status post previous trauma. No adrenal nodules. Right kidney demonstrates punctate area of low attenuation posteriorly unchanged. Right Kidney is been removed. Peritoneum and bowel: No free fluid or air. There is significant colonic stool without gross obstruction. Colonic diverticular present without inflammatory change. Nodes and vessels: No retroperitoneal or mesenteric adenopathy by size criteria. Inferior vena cava is normal in morphology. Miscellaneous: No ventral hernias. PELVIS: Genitourinary: Bladder wall thickness is normal. Miscellaneous: No inguinal hernias or adenopathy. No ventral hernias. Bones: No suspicious bony lesions. No vertebral body compression fractures. IMPRESSION: Significant colonic stool most consistent with constipation. No gross obstruction. Mild interval enlargement of left lower lobe nodule since prior exam of 10/17/2022. This could represent progressive interval scarring. However, three-month interval follow-up is recommended. Dictated by: Daisy Kirk M.D. on 04/29/2023 at 11:57 Approved by: Daisy Kirk M.D. on 04/29/2023 at 12:05
--- NOTE | 2023-04-29 10:55 | ED.CHESTPAIN ---
HPI - Chest Pain General Chief Complaint: Chest Pain Stated Complaint: sent by DI Time Seen by Provider: 04/29/23 10:43 Source: patient and other (GI clinic) Mode of arrival: Wheelchair Limitations: no limitations History of Present Illness HPI narrative: Patient is a 72-year-old male. Was at the [facility] this morning in order to get nerves and has lower back? [place]? during the pre procedure stages of this it was reported that the patient was diaphoretic, pale and hypotensive. Because of this he was sent to the emergency department. Here in the ER patient states that he is not having chest pain, he does have emphysema but there was no change in shortness of breath. No back pain. No lightheadedness. No belly pain. No nausea or vomiting. He actually states he feels fairly good. He did take an oxycodone this morning into gabapentin. He did not eat breakfast this morning. Related Data Home Medications Medication Instructions Recorded Confirmed albuterol sulfate 90 mcg/actuation g inhalation 09/04/22 03/26/23 aerosol inhaler atorvastatin 20 mg tablet 20 mg PO BEDTIME 09/04/22 03/26/23 duloxetine 30 mg capsule,delayed 30 mg PO DAILY 09/04/22 03/26/23 release fluticasone propionate 50 g intranasal 09/04/22 03/26/23 mcg/actuation nasal spray,suspension gabapentin 600 mg tablet 600 mg PO BEDTIME 09/04/22 03/26/23 losartan 100 mg tablet 100 mg PO DAILY 09/04/22 03/26/23 trazodone 50 mg tablet 50 mg PO PRN 09/04/22 03/26/23 aspirin 81 mg tablet,delayed 81 mg PO DAILY 01/19/23 03/26/23 release (Adult Low Dose Aspirin) Previous Rx's Medication Instructions Recorded capsaicin 0.025 % topical cream 1 applic topical TID PRN 01/19/23 Neuropathic pain #25 grams celecoxib 200 mg capsule (Celebrex) 400 mg (2 x 200 mg) PO ONCE #2 caps 03/26/23 oxycodone 5 mg tablet 5 mg PO ONCE pain #1 tab 03/26/23 Allergies Allergy/AdvReac Type Severity Reaction Status Date / Time No Known Drug Allergies Allergy Unverified 04/29/23 10:46 Review of Systems Constitutional Constitutional: Reports system reviewed and no additional complaints, except as documented Cardiovascular Cardiovascular: Reports system reviewed and no additional complaints, except as documented Respiratory Respiratory: Reports system reviewed and no additional complaints, except as documented Gastrointestinal Gastrointestinal: Reports system reviewed and no additional complaints, except as documented Genitourinary Genitourinary: Reports system reviewed and no additional complaints, except as documented Neurologic Neurologic: Reports system reviewed and no additional complaints, except as documented Hematologic/Lymphatic On Anticoagulants: No Patient History Medical History Neuropathic pain COPD (chronic obstructive pulmonary disease) Lower extremity numbness Chronic pain syndrome Spondylosis of thoracic region without myelopathy or radiculopathy Peripheral arterial disease Opioid use Left shoulder pain Intermittent claudication Hearing impaired Functional asplenia Chronic obstructive bronchitis Chronic bilateral thoracic back pain Cervicalgia Surgical History History of appendectomy History of splenectomy Social History household members: spouse Smoking Status: Current every day smoker alcohol intake: current Smoking Status: Current every day smoker alcohol intake frequency: 0-2 drinks per day Substance Use Type: does not use Exam Initial Vital Signs Initial Vital Signs: Vital Signs Temperature 96.6 F L 04/29/23 10:40 Pulse Rate 52 L 04/29/23 10:40 Respiratory Rate 16 04/29/23 10:40 Blood Pressure 72/49 L 04/29/23 10:40 Pulse Oximetry 97 04/29/23 10:40 Oxygen Delivery Method Room Air 04/29/23 10:40 Const General: cooperative, comfortable and No ill appearing [facility] Head: normal to inspection and normocephalic Resp Effort & Inspection: normal respiratory effort Auscultation: clear to auscultation bilaterally Cardio Rate: regular rate Rhythm: regular rhythm Pulses: radial pulses present bilaterally GI Inspection: normal to inspection and non-distended Skin General: no rashes or lesions noted Neuro General: patient alert, patient awake, patient oriented x3 and moves all extremities Speech: speech normal Extrem General: normal to inspection and capillary refill normal Course Orders Ordered: ED Orders 04/29/23 10:44 CT angio chest abdomen pelvis Stat EKG-12 Lead Stat 04/29/23 11:28 Complete Blood Count AUTO DIFF Stat Comprehensive Metabolic Panel Stat Lipase Stat NT-proBNP (BNP-Adult 18+) Stat PTT Partial Thromboplastin Gonzalo Stat Prothrombin Time INR Stat Troponin & CK Cardiac Panel Stat Discontinued Medications Sodium Chloride (Normal Saline 0.9%) 1,000 mls @ 1,000 mls/hr IV BOLUS ONE Stop: 04/29/23 11:42 Last Admin: 04/29/23 11:07 Dose: 1,000 mls/hr Documented By: CAPO Vital Signs Vital signs: Vital Signs - 8 hr 04/29/23 10:40 04/29/23 10:45 04/29/23 10:47 Temperature 96.6 F L Pulse Rate 52 L 60 Respiratory Rate 16 Blood Pressure 72/49 L 139/65 Pulse Oximetry 97 97 Oxygen Delivery Method Room Air 04/29/23 11:04 04/29/23 11:08 04/29/23 11:08 Temperature Pulse Rate 58 L 53 L Respiratory Rate Blood Pressure 103/51 L Pulse Oximetry 96 96 Oxygen Delivery Method 04/29/23 12:33 04/29/23 12:34 Temperature Pulse Rate 61 67 Respiratory Rate 15 16 Blood Pressure 114/70 186/85 H Pulse Oximetry 97 97 Oxygen Delivery Method Room Air MDM - Chest Pain Lab Data 04/29/23 11:28 04/29/23 11:28 Labs: Lab Results 04/29/23 Range/Units 11:28 WBC 9.7 (4.5-11.0) X10^3/uL RBC 4.33 L (4.5-5.9) X10^6/uL Hgb 14.2 (13.5-17.5) g/dL Hct 42.8 (41-53) % MCV 98.7 (80-100) fL MCH 32.8 (26-34) PG MCHC 33.3 (30-36) % RDW 13.3 (11.6-14.8) % Plt Count 285 (150-400) X10^3/uL Neut % (Auto) 60.5 (50-75) % Lymph % (Auto) 24.1 L (25-40) % Hughes % (Auto) 8.5 (3-14) % Eos % (Auto) 5.6 H (2-4) % Baso % (Auto) 1.3 (0-2) % Neut # (Auto) 5900 (3396-5398) /uL Lymph # (Auto) 2300 (2761-8394) /uL Hughes # (Auto) 800 (0-900) /uL Eos # (Auto) 500 H (0-450) /uL Baso # (Auto) 100 (0-100) /uL PT 12.3 (10.1-12.7) SECONDS INR 1.1 (0.9-1.3) APTT 26 (26-36) SECONDS Sodium 140 (137-145) mmol/L Potassium 4.6 (3.4-5.1) mmol/L Chloride 108 H (98-107) mmol/L Carbon Dioxide 25 (22-32) mmol/L BUN 31 H (9-20) mg/dL Creatinine 0.97 (0.66-1.25) mg/dL Estimated GFR > 60 (>60) mL/min BUN/Creatinine Ratio 32.0 H (6-22) Glucose 88 (80-110) mg/dL Calcium 8.6 (8.4-10.2) mg/dL Total Bilirubin 0.8 (0.2-1.3) mg/dL AST 22 (17-59) IU/L ALT 16 (<50) IU/L Alkaline Phosphatase 66 (38-126) U/L Total Creatine Kinase 54 L (55-170) U/L Troponin I < 0.012 (0.01-0.034) ng/mL NT-Pro-B Natriuret Pep 275 H (<125) pg/mL Total Protein 6.8 (6.3-8.2) g/dL Albumin 3.8 (3.5-5.0) g/dL Globulin 3.0 (1.7-4.1) g/dL Albumin/Globulin Ratio 1.3 (1.0-2.8) Lipase 75 (23-300) U/L Imaging Data CTA chest/abd/pelvis: Radiologist's Impression: PROCEDURE: CT ANGIO CHEST ABDOMEN PELVIS INDICATIONS: eval for dissection/aortic aneurysm TECHNIQUE: Precontrast 5 mm thick sections acquired from the lung apices to the iliac crests. After the administration of intravenous contrast, 2.5 mm thick sections again acquired from the lung apices to the iliac crests. Maximum intensity projection (MIP) oblique sagittal and coronal reformats were then acquired. For radiation dose reduction, the following was used: automated exposure control. COMPARISON: CT, CT ANGIO CHEST PE, 08/16/2018, 15:37. Merged With [facility], CT, CT ABDOMEN PELVIS WITH CONTRAST, 10/17/2022, 19:14. FINDINGS: Image quality: Excellent. AORTA: Ascending thoracic aorta measures 3.3 cm. No areas of dissection or hemodynamically significant stenosis. Atherosclerotic calcifications are present throughout the course in the chest, abdomen and pelvis. CHEST: Lungs and pleura: No acute airspace opacities. No pleural effusions or pneumothorax. Central and peripheral airways are patent and normal in caliber. 2-3 mm nodules present the lateral aspect of the right upper lobe on series 6, image 131. This was present on prior exam in 2019, punctate in size. 1.1 cm left posterior lower lobe nodule. It previously measured 0.60.7 cm on 10/17/2022. Mediastinum: Heart size is normal. No pericardial effusion. No mediastinal or hilar adenopathy by size criteria. Central pulmonary arteries are normal in size. Esophagus is normal in caliber. Mild hiatal hernia. Bones and chest wall: No axillary adenopathy by size criteria. Thyroid gland is unremarkable . No suspicious bony lesions. No vertebral body compression fractures. ABDOMEN: Vasculature: Celiac trunk and mesenteric arteries are patent. Renal arteries are also patent. Solid organs: Liver is normal in size and enhancement. Gallbladder is unremarkable . Biliary system is non dilated. Pancreas enhances normally. Small soft tissue density is present in the region of the spleen possibly related to remnant spleen or splenule status post previous trauma. No adrenal nodules. Right kidney demonstrates punctate area of low attenuation posteriorly unchanged. Right Kidney is been removed. Peritoneum and bowel: No free fluid or air. There is significant colonic stool without gross obstruction. Colonic diverticular present without inflammatory change. Nodes and vessels: No retroperitoneal or mesenteric adenopathy by size criteria. Inferior vena cava is normal in morphology. Miscellaneous: No ventral hernias. PELVIS: Genitourinary: Bladder wall thickness is normal. Miscellaneous: No inguinal hernias or adenopathy. No ventral hernias. Bones: No suspicious bony lesions. No vertebral body compression fractures. IMPRESSION: Significant colonic stool most consistent with constipation. No gross obstruction. Mild interval enlargement of left lower lobe nodule since prior exam of 10/17/2022. This could represent progressive interval scarring. However, three-month interval follow-up is recommended. ECG Data Attestation: I personally reviewed and interpreted this ECG as follows: Interpretation: Sinus bradycardia Ventricular rate of 58 Normal axis Normal QRS Normal QTC No ST T wave changes MDM Narrative Medical decision making narrative: Ever since arrival here in the emergency department the patient states he feels well. He does not specifically remember feeling poorly. No chest pain. No shortness of breath. No lightheadedness. He does have a differential in his blood pressures with the right compared to the left. His left is higher compared to the right. CTA shows no signs of aortic dissection or aneurysm. Patient ambulated around the emergency department without any issues. Unsure of the exact etiology of his differences in blood pressure however he does appear to be asymptomatic from this. He is good pulses and capillary refill in both of his extremities and in his equal bilateral. Advised that he contact his primary doctor as he may need further workup to include vascular surgery or Cardiology. He was given return precautions. Discharge Plan Departure Patient Disposition: Home Clinical Impression: Hypotension, unspecified Activity Restrictions/Additional Instructions: I do recommend that you continue to take all of your medications as directed. I do recommend you contact your primary doctor to discuss the differences in blood pressure that you were having an your arms. He may want to send you to a specialist such as vascular surgery Cardiology. Return to the emergency department for new or worsening symptoms. Prescriptions: No Action aspirin [Adult Low Dose Aspirin] 81 mg tablet,delayed release (DR/EC) 81 mg PO DAILY capsaicin 0.025 % cream 1 applic topical TID PRN (Reason: Neuropathic pain) Qty: 25 2RF Rx Instructions: Apply with gloves and wash hands after application, do not wash area for at least 30 min after application. duloxetine 30 mg capsule,delayed release(DR/EC) 30 mg PO DAILY trazodone 50 mg tablet 50 mg PO PRN albuterol sulfate 90 mcg/actuation HFA aerosol inhaler inhalation gabapentin 600 mg tablet 600 mg PO BEDTIME fluticasone propionate 50 mcg/actuation spray,suspension intranasal losartan 100 mg tablet 100 mg PO DAILY atorvastatin 20 mg tablet 20 mg PO BEDTIME celecoxib [Celebrex] 200 mg capsule 400 mg PO ONCE Qty: 2 0RF Rx Instructions: Take 4 hours prior to procedure. oxycodone 5 mg tablet 5 mg PO ONCE Qty: 1 0RF Rx Instructions: Take 1 hour prior to procedure. Referrals: Sujata Santamaria MD [Primary Care Provider] - Stand Alone Forms: Patient Portal/API
[2023-04-29] MEDS: SODIUM CHLORIDE 0.9% 1,000 ML 1000 ML IV (11:07)
[2023-04-29 11:42] LABS: Add Manual Diff / Slide Review NO; Basophils Absolute Auto 100 /uL (0-100); Basophils Percent Auto 1.3 % (0-2); Eosinophils Absolute Auto 500 /uL (0-450); Eosinophils Percent Auto 5.6 % (2-4); Hematocrit 42.8 % (41-53); Hemoglobin 14.2 g/dL (13.5-17.5); Lymphocytes Absolute Auto 2300 /uL (1100-4500); Lymphocytes Percent Auto 24.1 % (25-40); Mean Corpuscular HGB Conc 33.3 % (30-36); Mean Corpuscular Hemoglobin 32.8 PG (26-34); Mean Corpuscular Volume 98.7 fL (80-100); Monocytes Absolute Auto 800 /uL (0-900); Monocytes Percent Auto 8.5 % (3-14); Neutrophils Absolute Auto 5900 /uL (1500-7000); Neutrophils Percent Auto 60.5 % (50-75); Platelet Count 285 X10^3/uL (150-400); Red Blood Cell Count 4.33 X10^6/uL (4.5-5.9); Red Cell Distribution Width 13.3 % (11.6-14.8); White Blood Cell Count 9.7 X10^3/uL (4.5-11.0)
[2023-04-29 11:44] LABS: INR 1.1 (0.9-1.3); Prothrombin Time 12.3 SECONDS (10.1-12.7)
[2023-04-29 11:47] LABS: PTT Partial Thromboplastin Tim 26 SECONDS (26-36)
[2023-04-29 12:01] LABS: Troponin I < 0.012 ng/mL (0.01-0.034)
[2023-04-29 12:25] LABS: Alanine Aminotransferase 16 IU/L (<50); Albumin 3.8 g/dL (3.5-5.0); Albumin Globulin Ratio 1.3 (1.0-2.8); Alkaline Phosphatase 66 U/L (38-126); Aspartate Aminotransferase 22 IU/L (17-59); Bilirubin Total 0.8 mg/dL (0.2-1.3); Blood Urea Nitrogen 31 mg/dL (9-20); Calcium 8.6 mg/dL (8.4-10.2); Carbon Dioxide 25 mmol/L (22-32); Chloride 108 mmol/L (98-107); Creatine Kinase 54 U/L (55-170); Estimated Glomerular Filt Rate > 60 mL/min (>60); Glucose 88 mg/dL (80-110); Potassium 4.6 mmol/L (3.4-5.1); Sodium 140 mmol/L (137-145); Total Protein 6.8 g/dL (6.3-8.2)
[2023-04-29 12:32] LABS: HEMOLYSIS 18 (0-50); Lipase 75 U/L (23-300); NT-proBNP (BNP-Adult 18+) 275 pg/mL (<125)
--- NOTE | 2023-04-29 12:53 | PC.NURSE ---
tolerated walking without difficulty. denies pain.
== END 2023-04-29 12:55 | disposition home or self-care (01) ==
PROVIDERS: Emergency Provider Emergency Medicine; PCP Family Medicine
DX: I95.9 Hypotension, unspecified (principal); R00.1 Bradycardia, unspecified; R07.9 Chest pain, unspecified
CPT/HCPCS: 36415; 71275; 74174; 80053; 82550; 83690; 83880; 84484; 85025; 85610; 85730; 93005; 96360; 99284; Q9967

== ENCOUNTER 2023-05-27 10:27 | Outpatient (CLI) | payer MEDICARE, OTHER, SELFPAY ==
[2022-10-14 17:59] VITALS: BMI 23.7
[2023-05-27] VITALS (14 sets, daily range): BP systolic 109–178; BP diastolic 55–80; PULSE 65–79; RESP 10–18; TEMP 36.7; O2SAT 94–99
--- NOTE | 2023-05-27 11:00 | DI.RAD.S_ITS ---
PROCEDURE: PAIN C/T MEDIAL N RFA BILAT INDICATIONS: RADICULOPATHY COMPARISON: [facility], XA, PAIN C/T MEDIAL N RFA BILAT, 11/05/2022, 11:16. FINDINGS: 6 images. Fluoroscopic spot filming was performed to verify placement of spinal needles at the bilateral T8, T9, T10 level(s), as labeled on the films. Appropriate location(s) of the needle tip(s) was confirmed by injection of iodinated contrast. IMPRESSION: Intraoperative guidance provided. Dictated by: Tio Goldberg M.D. on 05/27/2023 at 15:45 Approved by: Tio Goldberg M.D. on 05/27/2023 at 15:46
[2023-05-27] MEDS: MIDAZOLAM 2 MG/2 ML VIAL 1 MG IV (11:08)
[2023-05-27] MEDS: BUPIVACAINE 0.5% (PF) 10 ML VIAL 5 ML INJ (11:12)
[2023-05-27] MEDS: DEXAMETHASONE 10 MG/ML VIAL INJ (11:13)
[2023-05-27] MEDS: LIDOCAINE 2% INJ SDV 5ML 10 ML INJ (11:13)
[2023-05-27] MEDS: LIDOCAINE 2% INJ SDV 5ML 5 ML INJ (11:34)
[2023-05-27] MEDS: MIDAZOLAM 2 MG/2 ML VIAL 0.5 MG IV (11:40)
--- NOTE | 2023-05-27 12:02 | P.PCN_ITS ---
Date/Time/Diagnoses Date of procedure: 05/27/23 Time of procedure: 11:00 Procedure Notes Physician: Dung Patel Total Fluoroscopy time (seconds): 38 Total sedation minutes: 47 Procedure in detail & Post-procedure care: Bilateral T8, 9, 10 Thoracic Medial Branch Radio Frequency Ablation Indications: [place] presents for treatment of thoracic spondylosis with back pain. Preoperative diagnosis: Thoracic spondylosis Postoperative diagnosis: Same Focused Examination: Ax3 Mood and affect are normal Vital Signs: VSS ASA: 2 Consent: Following review of allergies and potential side effects/complications, including, but not necessarily limited to, infection, allergic reaction, local tissue breakdown, stroke, temporary or permanent nerve injury, paralysis, and possible , the patient indicated that they understood and agreed to proceed.? An informed consent document was signed by the patient, witnessed by a nurse and placed in the patient's chart.? Additionally, other treatment options including medications and physical therapy were reviewed with the patient. All questions were answered. Site was then marked. Position: Prone Monitoring: NIBP, Pulse oximetry, 3 lead EKG Needle used: 20 guage, 100 mm, 10 mm active tip Anesthesia: Local with IV sedation. After review of previous anesthetic history and IV conscious sedation, the patient was deemed safe to proceed with today's procedure with IV conscious sedation. IV sedation was accomplished with midazolam 1.5 mg administered by the RN after order by Dr. Patel. Sedation was titrated to patient comfort during the course of the procedure. Patient remained responsive to all verbal commands. Procedure: The patient was brought into the procedure room and positioned into the prone position. Skin was prepped with a Chloraprep solution, allowed to air dry, and then draped in sterile fashion.? The right T9-10 and T10-11 facet joints were visually identified with fluoroscopy. Lidocaine 1% was used to anesthetize the skin over each target destination with a 25ga needle. A 20 ga, 100 mm RFA needle with a 10 mm active tip was advanced to the location of the medial branch on the right T9, 10, 11 transverse process using intermittent fluoroscopy in the AP view with 5? contralateral oblique tilt and magnification x2. AP and lateral radiographs were taken to confirm proper needle placement. No paresthesias were noted. The stylet was removed and the radiofrequency probe was inserted through the cannula. Each level was individually tested.? Motor stimulation up to 2V elicited multifidus twitching. There was no motor stimulation of the chest. After negative aspiration, 1ml of 2% lidocaine was injected at each of the levels and radiofrequency denervation carried out using 80 degrees Celsius for 90 seconds. The needles were then rotated 90 degrees and a second ablation was performed at 80 degrees Celsius for 90 seconds. Next, the left T9-10 and T10-11 facet joints were visually identified with fluoroscopy. Lidocaine 1% was used to anesthetize the skin over each target destination with a 25ga needle. A 20 ga, 100 mm RFA needle with a 10 mm active tip was advanced to the location of the medial branch on the left T9, 10, 11 transverse process using intermittent fluoroscopy in the AP view with 5? contralateral oblique tilt and magnification x2. AP and lateral radiographs were taken to confirm proper needle placement. No paresthesias were noted. The stylet was removed and the radiofrequency probe was inserted through the cannula. Each level was individually tested.? Motor stimulation up to 2V elicited multifidus twitching. There was no motor stimulation of the chest. After negative aspiration, 1ml of 2% lidocaine was injected at each of the levels and radiofrequency denervation carried out using 80 degrees Celsius for 90 seconds. The needles were then rotated 90 degrees and a second ablation was performed at 80 degrees Celsius for 90 seconds. After ablation, a mixture of 10 mg dexamethasone with 0.5% bupivacaine 5 mL was injected in equal amounts among the sites (1 mL per site). At the end of the procedure the needles were withdrawn and Band-Aids were applied for a dressing. This procedure is expected to denervate the bilateral T9-10 and T10-11 facet joints. Post Procedure: Patient was taken to the recovery and monitored. The patient was provided a Pain Log to continue to record the patient's response to the target- specific procedure prior to the patient's follow-up visit with the referring physician. Patient was stable upon discharge. Detailed post procedure instructions were provided. Patient was asked to call in the event of worsening pain, fever, weakness, numbness or bladder or bowel incontinence. Complications: Non
== END 2023-05-27 12:14 | disposition home or self-care (01) ==
LOC: RAD 10:28
PROVIDERS: PCP Family Medicine; Referring Provider Anesthesiology; Visit Provider Anesthesiology
DX: M47.814 Spondylosis without myelopathy or radiculopathy, thoracic region (principal)
CPT/HCPCS: 64633; 64634; 99152; 99153; J1100; J2250